=== PATIENT | male | born 1990 | race Caucasian/White ===

== ENCOUNTER 2017-01-28 18:50 | Emergency (ER) | payer MEDICAID ==
[~2017-01-28] VITALS: Ht 177.8 cm; Wt 77.3 kg
[2017-01-28] MEDS ORDERED: OLAN5TAB2 PO (18:58)
[2017-01-28] MEDS ORDERED: TRAZ-144 PO (18:58)
[2017-01-28] MEDS ORDERED: QUET100T PO (18:58)
[2017-01-28] MEDS ORDERED: OLANZapine 5 MG TABLET PO ONE (19:45)
[2017-01-28] MEDS ORDERED: LORazepam 1 MG TABLET PO ONE (19:45)
[2017-01-28] MEDS ORDERED: ONDANSETRON HCL 4 MG TABLET PO ONE (19:45)
[2017-01-28 21:20] VITALS: BP 129/73
== END 2017-01-28 21:38 | disposition home or self-care (01) ==
LOC: EMS 18:51
DX: F31.9 Bipolar disorder, unspecified (principal); F11.23 Opioid dependence with withdrawal; F41.9 Anxiety disorder, unspecified; R11.0 Nausea; R10.9 Unspecified abdominal pain
CPT/HCPCS: 99284; Q0162

== ENCOUNTER 2017-05-13 08:16 | Day surgery (SDC) | payer MEDICAID ==
[~2017-05-13] VITALS: Ht 172.7 cm; Wt 78.5 kg
[~2017-05-13 08:16] MED LIST: BUPR1FIL3 SL; DIVA500T35 PO; ESOM20CA31 PO; GABA-533 PO; LEDI1TAB PO; SODIUM CHLORIDE 0.9% 1,000 ML IV ONE
[2017-05-13] MEDS ORDERED: PROPOFOL 1% 20 ML VIAL IVP ONE (08:17)
[2017-05-13] MEDS ORDERED: SODIUM CHLORIDE 0.9% 1,000 ML IV ONE (08:24)
== END 2017-05-13 10:55 | disposition home or self-care (01) ==
LOC: SURGERY 08:16
PROVIDERS: ATTEND Internal Medicine Gastroenterology
DX: K29.50 Unspecified chronic gastritis without bleeding (principal); K92.1 Melena; B18.2 Chronic viral hepatitis C; F17.210 Nicotine dependence, cigarettes, uncomplicated; J45.909 Unspecified asthma, uncomplicated; F32.9 Major depressive disorder, single episode, unspecified; F41.9 Anxiety disorder, unspecified; Z98.890 Other specified postprocedural states; Z79.899 Other long term (current) drug therapy
CPT/HCPCS: 43239; 88305; 88312; J2704; J7030